=== PATIENT | female | born 1990 | race Caucasian/White ===

== ENCOUNTER 2017-04-18 07:24 | Day surgery (SDC) | payer OTHER ==
[~2017-04-18] VITALS: Ht 157.5 cm; Wt 51.3 kg
[~2017-04-18 07:24] MED LIST: AMOX500 PO; APRI1 EACH PO; Antivert25 MG PO; BCP; BIRTH CONTROL; Bactrim Ds Tab1 EACH PO; CEPH500 PO; CIPR250 PO; CIPR500 PO; CODACE15 PO; CODACE30 PO; CYAN100T2 PO; CYCL10 PO; Cyclobenzaprine5 MG PO; DIPH50; DOCU100 PO; DOXY100; ESTR.1TPBW TD; ESTR2; ESTR2 PO; FAMO20 PO; HYDACE5 PO; HYDCOR2.5B TOP; HYDGUAL120 PO; HYDR1TAB94 PO; IBUP400 PO; IBUP600 PO; IBUP800; IBUP800 PO; METPRE4DP PO; MULVITMINE PO; NAPR500 PO; NAPR550 PO; Naprosyn500 MG PO; Norco 5-325 Ta1 EACH PO; OXYACE5T PO; OXYACE7.5T PO; PENVK500 PO; PHENA200 PO; PRED5 PO; PROM25 PO; PSEU30 PO; Percocet 5-3251 EACH PO; Pyridium100 MG PO; Pyridium200 MG PO; RXCODACET PO; RXCYCL10 PO; RXPROM25 PO; RXTRAM50 PO; SULTRIDS PO; Ultram50 MG PO; Veetids 500500 MG PO; Verotin-Gr Cap1 EACH PO; Yaz 28 Tablet1 EACH PO; ZOLP5; [UNRECOGNIZED DRUG - REMARK]
== END 2017-04-18 09:54 | disposition home or self-care (01) ==
LOC: ORSCMMR 07:24
PROVIDERS: Internal Medicine Gastroenterology
PROC: 0DB48ZX Excision of Esophagogastric Junction, Via Natural or Artificial Opening Endoscopic, Diagnostic (ICD-10-PCS; principal; 2017-04-18 08:30)
PROC: 0DB68ZX Excision of Stomach, Via Natural or Artificial Opening Endoscopic, Diagnostic (ICD-10-PCS; principal; 2017-04-18 08:30)
PROC: 0DB98ZX Excision of Duodenum, Via Natural or Artificial Opening Endoscopic, Diagnostic (ICD-10-PCS; principal; 2017-04-18 08:30)
DX: R10.13 Epigastric pain (principal); B96.81 Helicobacter pylori [H. pylori] as the cause of diseases classified elsewhere; F17.210 Nicotine dependence, cigarettes, uncomplicated; K29.50 Unspecified chronic gastritis without bleeding; Z79.899 Other long term (current) drug therapy
CPT/HCPCS: 88305; 88342; J7120

== ENCOUNTER → 2017-07-11 | Outpatient (CLI) | payer OTHER | END | disposition home or self-care (01) | LOC: LAB EV 10:00 | DX: K29.01 Acute gastritis with bleeding (principal) | CPT/HCPCS: 87338 ==

== ENCOUNTER → 2018-05-24 | Outpatient (CLI) | payer OTHER ==
[2018-05-25 08:48] LABS: Candida species (DNA Probe) Negative (NEGATIVE); G. vaginalis (DNA Probe) Positive (NEGATIVE); T. vaginalis (DNA Probe) Negative (NEGATIVE)
== END | disposition home or self-care (01) ==
LOC: LAB 10:01 → LAB SHORT 10:01
PROVIDERS: Obstetrics & Gynecology
DX: N76.0 Acute vaginitis (principal)
CPT/HCPCS: 87480; 87510; 87660

== ENCOUNTER 2018-11-08 09:48 | Emergency (ER) | payer OTHER ==
[~2018-11-08] VITALS: Ht 157.5 cm; Wt 54.0 kg
== END 2018-11-08 11:43 | disposition home or self-care (01) ==
LOC: ER 09:48
DX: R11.2 Nausea with vomiting, unspecified (principal); Z87.891 Personal history of nicotine dependence
CPT/HCPCS: 81025; 99283

== ENCOUNTER 2019-05-02 09:56 | Emergency (ER) | payer OTHER ==
[~2019-05-02] VITALS: Ht 157.5 cm; Wt 52.2 kg
[2019-05-02] MEDS ORDERED: Ultram50 MG PO (12:22)
== END 2019-05-02 12:29 | disposition home or self-care (01) ==
LOC: ER 09:56
DX: M25.551 Pain in right hip (principal); F17.210 Nicotine dependence, cigarettes, uncomplicated; Z79.899 Other long term (current) drug therapy
CPT/HCPCS: 99283

== ENCOUNTER 2021-09-26 15:35 | Emergency (ER) | payer OTHER ==
[~2021-09-26] VITALS: Ht 157.5 cm; Wt 56.7 kg
[2021-09-26 17:23] LABS: Influenza A, PCR NEGATIVE (NEGATIVE); Influenza B, PCR NEGATIVE (NEGATIVE); Resp Syncytial Virus, PCR NEGATIVE (NEGATIVE); SARS-Cov-2 (COVID-19) PCR, MMC NEGATIVE (NEGATIVE)
[2021-09-26 18:06] LABS: Source, Urine Clean Catch
[2021-09-26 18:08] LABS: Appearance, Urine Cloudy (Clear); Bilirubin, Urine Neg (Neg); Blood, Urine Neg (Neg); Color, Urine Yellow (P-Yellow); Glucose Qualitative, Urine Neg (Neg); Ketones, Urine Neg (Neg); Leukocyte Esterase, Urine Neg (Neg); Nitrite, Urine Pos (Neg); Protein, Urine Neg (Neg); Specific Gravity, Urine 1.015 (1.003-1.022); Urobilinogen, Urine NORM (Normal)
[2021-09-26 18:20] LABS: Bacteria Many /hpf; Red Blood Cells, Urine 0-2 /hpf (0-2); Squamous Epithelial Cells Few /hpf (Few)
[2021-09-26 18:21] LABS: Amorphous Heavy (0-Heavy)
== END 2021-09-26 20:07 | disposition home or self-care (01) ==
LOC: ER 15:35
PROVIDERS: Physician Assistant
DX: N39.0 Urinary tract infection, site not specified (principal); F17.210 Nicotine dependence, cigarettes, uncomplicated; Z20.822 Contact with and (suspected) exposure to COVID-19; Z79.818 Long term (current) use of other agents affecting estrogen receptors and estrogen levels
CPT/HCPCS: 0241U; 81001; 87077; 87086; 87186; 96374; 99284-25; J0696

== ENCOUNTER 2021-11-01 07:28 | Emergency (ER) | payer OTHER ==
[~2021-11-01] VITALS: Ht 157.5 cm; Wt 65.8 kg
[2021-11-01 09:14] LABS: Source, Urine Clean Catch
[2021-11-01 09:25] LABS: BASOPHILS ABSOLUTE AUTO 0.03 K/mm3 (0.00-0.23); BASOPHILS PERCENT AUTO 1 % (0-2); EOSINOPHILS PERCENT AUTO 2 % (0-6); Hematocrit 40.2 % (33.0-51.0); Hemoglobin 13.8 g/dL (11.5-16.0); IMMATURE GRAN ABSOLUTE AUTO 0.02 K/mm3 (0.00-0.10); IMMATURE GRAN PERCENT AUTO 0 % (0-1); LYMPHOCYTES ABSOLUTE AUTO 2.72 K/mm3 (0.84-5.20); LYMPHOCYTES PERCENT AUTO 49 % (21-46); MONOCYTES ABSOLUTE AUTO 0.51 K/mm3 (0.16-1.47); MONOCYTES PERCENT AUTO 9 % (4-13); Mean Corpuscular HGB 31.3 pg (26.0-34.0); Mean Corpuscular HGB Conc 34.3 g/dL (31.5-36.5); Mean Corpuscular Volume 91 fL (80-100); Mean Platelet Volume 8.9 fL (9.1-12.4); NEUTROPHILS ABSOLUTE AUTO 2.16 K/mm3 (1.96-9.15); NEUTROPHILS PERCENT AUTO 39 % (41-73); Platelet Count 237 K/mm3 (150-400); RDW Coefficient Variation 11.4 % (11.7-14.2); RDW Standard Deviation 38.5 fL (35.1-46.3); Red Blood Cell Count 4.41 M/mm3 (3.80-5.20); White Blood Cell Count 5.54 K/mm3 (4.00-11.30)
[2021-11-01 09:25] LABS: Bilirubin, Urine Neg (Neg); Blood, Urine Neg (Neg); Glucose Qualitative, Urine Neg (Neg); Ketones, Urine Neg (Neg); Leukocyte Esterase, Urine Neg (Neg); Nitrite, Urine Neg (Neg); Protein, Urine Neg (Neg); Specific Gravity, Urine 1.015 (1.003-1.022); Urobilinogen, Urine NORM (Normal); pH, Urine 6.5 (5.0-8.0)
[2021-11-01 09:26] LABS: Appearance, Urine Clear (Clear); Color, Urine Yellow (P-Yellow)
[2021-11-01 09:40] LABS: Albumin, Blood 3.9 g/dL (3.4-5.0); Albumin/Globulin Ratio 1.1 (0.8-1.8); Bilirubin, Total 0.3 mg/dL (0.1-1.0); Bun/Creatinine Ratio 19.2 (12.0-20.0); Calcium, Blood 8.8 mg/dL (8.5-10.1); Creatinine, Blood 0.73 mg/dL (0.40-1.00); Globulin, Blood 3.4 g/dL (2.2-4.0); Potassium, Blood 3.7 mmol/L (3.5-5.5); Total Protein, Blood 7.3 g/dL (6.4-8.2)
== END 2021-11-01 10:49 | disposition home or self-care (01) ==
LOC: ER 07:28
PROVIDERS: Student in an Organized Health Care Education/Training Program
DX: R10.84 Generalized abdominal pain (principal); R19.7 Diarrhea, unspecified; F17.210 Nicotine dependence, cigarettes, uncomplicated; Z79.899 Other long term (current) drug therapy
CPT/HCPCS: 36415; 80053; 81003; 81025; 83690; 85025

== ENCOUNTER → 2021-11-01 | Outpatient (CLI) | payer OTHER ==
[2021-11-01 17:10] LABS: Adenovirus F 40/41 Not Detected (NOT DETECT); Astrovirus Not Detected (NOT DETECT); Campylobacter Sp Not Detected (NOT DETECT); Cryptosporidium Not Detected (NOT DETECT); Cyclospora Cayetanensis Not Detected (NOT DETECT); E. Coli O157 Not Detected (NOT DETECT); Entamoeba Histolytica Not Detected (NOT DETECT); Enteroaggregative E. coli-EAEC Not Detected (NOT DETECT); Enteropathogenic E. coli-EPEC Not Detected (NOT DETECT); Enterotoxigenic E. coli-ETEC Not Detected (NOT DETECT); Giardia Lamblia Not Detected (NOT DETECT); Norovirus GI/GII Not Detected (NOT DETECT); Plesiomonas Shigelloides Not Detected (NOT DETECT); Rotavirus A Not Detected (NOT DETECT); Salmonella Sp Not Detected (NOT DETECT); Sapovirus Not Detected (NOT DETECT); Shiga Toxin-prod E. coli-STEC Not Detected (NOT DETECT); Shigella/Enteroin E. coli-EIEC Not Detected (NOT DETECT); Vibrio Cholerae Not Detected (NOT DETECT); Vibrio Sp Not Detected (NOT DETECT); Yersinia Enterocolitica Not Detected (NOT DETECT)
== END | disposition home or self-care (01) ==
LOC: LAB SHORT 15:04
PROVIDERS: Emergency Medicine
DX: R19.7 Diarrhea, unspecified (principal)
CPT/HCPCS: 87324; 87507

== ENCOUNTER → 2022-04-12 | Outpatient (CLI) | payer OTHER ==
[2022-04-12 15:28] LABS: Source, Urine Clean Catch
[2022-04-12 17:12] LABS: Appearance, Urine Cloudy (Clear); Bilirubin, Urine Neg (Neg); Blood, Urine Neg (Neg); Color, Urine Yellow (P-Yellow); Glucose Qualitative, Urine Neg (Neg); Ketones, Urine Neg (Neg); Leukocyte Esterase, Urine Neg (Neg); Nitrite, Urine Neg (Neg); Protein, Urine Neg (Neg); Urobilinogen, Urine NORM (Normal)
[2022-04-12 19:03] LABS: Bacteria Many /hpf; Squamous Epithelial Cells Many /hpf (Few)
[2022-04-12 19:04] LABS: Mucus Mod (0-Heavy)
[2022-04-13 10:48] LABS: Candida species (DNA Probe) Negative (NEGATIVE); G. vaginalis (DNA Probe) Negative (NEGATIVE); T. vaginalis (DNA Probe) Negative (NEGATIVE)
== END | disposition home or self-care (01) ==
LOC: LAB SHORT 15:20
PROVIDERS: Obstetrics & Gynecology
DX: N94.10 Unspecified dyspareunia (principal); R82.90 Unspecified abnormal findings in urine
CPT/HCPCS: 81001; 87086; 87480; 87510; 87660

== ENCOUNTER 2022-12-05 21:35 | Emergency (ER) | payer OTHER ==
[~2022-12-05] VITALS: Ht 157.5 cm; Wt 55.3 kg
[2022-12-05 21:43] VITALS: BP 128/86
[2022-12-05 22:08] LABS: BASOPHILS ABSOLUTE AUTO 0.02 K/mm3 (0.00-0.23); BASOPHILS PERCENT AUTO 1 % (0-2); EOSINOPHILS ABSOLUTE AUTO 0.01 K/mm3 (0.00-0.68); EOSINOPHILS PERCENT AUTO 0 % (0-6); Hematocrit 39.8 % (33.0-51.0); IMMATURE GRAN ABSOLUTE AUTO 0.01 K/mm3 (0.00-0.10); IMMATURE GRAN PERCENT AUTO 0 % (0-1); LYMPHOCYTES PERCENT AUTO 24 % (21-46); MONOCYTES ABSOLUTE AUTO 0.39 K/mm3 (0.16-1.47); MONOCYTES PERCENT AUTO 9 % (4-13); Mean Corpuscular HGB 31.7 pg (26.0-34.0); Mean Corpuscular HGB Conc 35.2 g/dL (31.5-36.5); Mean Corpuscular Volume 90 fL (80-100); Mean Platelet Volume 8.6 fL (9.1-12.4); NEUTROPHILS ABSOLUTE AUTO 2.81 K/mm3 (1.96-9.15); NEUTROPHILS PERCENT AUTO 66 % (41-73); Platelet Count 222 K/mm3 (150-400); RDW Coefficient Variation 11.5 % (11.7-14.2); Red Blood Cell Count 4.42 M/mm3 (3.80-5.20); White Blood Cell Count 4.24 K/mm3 (4.00-11.30)
[2022-12-05 22:28] LABS: Albumin, Blood 3.8 g/dL (3.4-5.0); Bilirubin, Total 0.2 mg/dL (0.1-1.0); Bun/Creatinine Ratio 18.1 (12.0-20.0); Calcium, Blood 9.1 mg/dL (8.5-10.1); Creatinine, Blood 0.83 mg/dL (0.40-1.00); Globulin, Blood 3.8 g/dL (2.2-4.0); Potassium, Blood 3.9 mmol/L (3.5-5.5); Total Protein, Blood 7.6 g/dL (6.4-8.2)
== END 2022-12-05 22:13 | disposition left against medical advice (07) ==
LOC: ER 21:35
PROVIDERS: Student in an Organized Health Care Education/Training Program
DX: R51.9 Headache, unspecified (principal); Z53.29 Procedure and treatment not carried out because of patient's decision for other reasons
CPT/HCPCS: 80053; 85025

== ENCOUNTER 2022-12-06 07:21 | Emergency (ER) | payer OTHER ==
[~2022-12-06] VITALS: Ht 157.5 cm; Wt 55.3 kg
[2022-12-06 07:31] VITALS: BP 103/79
== END 2022-12-06 08:22 | disposition home or self-care (01) ==
LOC: ER 07:21
DX: B34.9 Viral infection, unspecified (principal); M79.10 Myalgia, unspecified site; F17.210 Nicotine dependence, cigarettes, uncomplicated; Z79.899 Other long term (current) drug therapy
CPT/HCPCS: 99283

== ENCOUNTER → 2023-01-31 | Outpatient (CLI) | payer OTHER ==
[2023-01-31 15:03] LABS: Source, Urine Clean Catch
[2023-01-31 19:09] LABS: Bilirubin, Urine Neg (Neg); Blood, Urine Neg (Neg); Color, Urine Yellow (P-Yellow); Glucose Qualitative, Urine Neg (Neg); Ketones, Urine Neg (Neg); Leukocyte Esterase, Urine Neg (Neg); Nitrite, Urine Neg (Neg); Protein, Urine Neg (Neg); Specific Gravity, Urine 1.015 (1.003-1.022); Urobilinogen, Urine NORM (Normal)
[2023-01-31 19:17] LABS: Appearance, Urine Clear (Clear)
== END ==
LOC: LAB 15:01 → LAB SHORT 15:01
PROVIDERS: Student in an Organized Health Care Education/Training Program
DX: R30.0 Dysuria (principal)
CPT/HCPCS: 81003

== ENCOUNTER 2023-02-19 08:07 | Emergency (ER) | payer OTHER ==
[~2023-02-19] VITALS: Ht 157.5 cm; Wt 55.3 kg
[2023-02-19 08:15] VITALS: BP 112/97
== END 2023-02-19 08:50 | disposition home or self-care (01) ==
LOC: ER 08:07
DX: R09.81 Nasal congestion (principal); F17.210 Nicotine dependence, cigarettes, uncomplicated; Z79.899 Other long term (current) drug therapy
CPT/HCPCS: 99283

== ENCOUNTER 2023-05-06 09:13 | Emergency (ER) | payer OTHER ==
[~2023-05-06] VITALS: Ht 157.5 cm; Wt 68.0 kg
[2023-05-06 09:50] VITALS: BP 135/86
== END 2023-05-06 09:57 | disposition home or self-care (01) ==
LOC: ER 09:13
DX: F41.9 Anxiety disorder, unspecified (principal); Z73.3 Stress, not elsewhere classified; K13.70 Unspecified lesions of oral mucosa; F17.210 Nicotine dependence, cigarettes, uncomplicated; Z79.3 Long term (current) use of hormonal contraceptives
CPT/HCPCS: 99282

== ENCOUNTER 2023-07-15 20:06 | Emergency (ER) | payer OTHER ==
[~2023-07-15] VITALS: Ht 157.5 cm; Wt 56.7 kg
[2023-07-15 20:43] VITALS: BP 110/72
[2023-07-15] MEDS ORDERED: Silver Sulfadiazine 1% Cream 25 APPLIC/25 GM Tube TOP ONE (21:55)
== END 2023-07-15 22:03 | disposition home or self-care (01) ==
LOC: ER 20:06
DX: T23.131A Burn of first degree of multiple right fingers (nail), not including thumb, initial encounter (principal); X18.XXXA Contact with other hot metals, initial encounter; Y93.G3 Activity, cooking and baking; F17.210 Nicotine dependence, cigarettes, uncomplicated; Z79.818 Long term (current) use of other agents affecting estrogen receptors and estrogen levels
CPT/HCPCS: 99282; A9270

== ENCOUNTER 2023-09-07 00:33 | Emergency (ER) | payer OTHER ==
[~2023-09-07] VITALS: Ht 157.5 cm; Wt 54.4 kg
[2023-09-07 00:39] VITALS: BP 116/92
[2023-09-07] MEDS ORDERED: RX Prepack 6 Tabs Oxycodone 5mg UD ONE (00:50)
== END 2023-09-07 00:58 | disposition home or self-care (01) ==
LOC: ER 00:33
DX: K06.8 Other specified disorders of gingiva and edentulous alveolar ridge (principal); F17.200 Nicotine dependence, unspecified, uncomplicated; Z79.818 Long term (current) use of other agents affecting estrogen receptors and estrogen levels
CPT/HCPCS: 99282; A9270

== ENCOUNTER 2024-01-04 07:23 | Emergency (ER) | payer OTHER ==
[~2024-01-04] VITALS: Ht 157.5 cm; Wt 57.1 kg
[2024-01-04] MEDS ORDERED: Ketorolac Tromethamine 15mg Vial IV ONE (09:00)
[2024-01-04] MEDS ORDERED: NS 1,000 ML IV SCH (09:00)
[2024-01-04 10:34] VITALS: BP 104/68
== END 2024-01-04 10:38 | disposition home or self-care (01) ==
LOC: ER 07:23
DX: U07.1 COVID-19 (principal); E86.0 Dehydration; F17.210 Nicotine dependence, cigarettes, uncomplicated; Z79.890 Hormone replacement therapy; Z59.89 Other problems related to housing and economic circumstances
CPT/HCPCS: 96374; 99283-25; J1885; J7030

== ENCOUNTER 2024-10-06 20:44 | Emergency (ER) | payer OTHER ==
[~2024-10-06] VITALS: Ht 157.5 cm; Wt 66.5 kg
[2024-10-06 21:39] LABS: BASOPHILS ABSOLUTE AUTO 0.03 K/mm3 (0.00-0.23); BASOPHILS PERCENT AUTO 0 % (0-2); EOSINOPHILS ABSOLUTE AUTO 0.07 K/mm3 (0.00-0.68); EOSINOPHILS PERCENT AUTO 1 % (0-6); Hematocrit 40.4 % (33.0-51.0); Hemoglobin 14.2 g/dL (11.5-16.0); IMMATURE GRAN ABSOLUTE AUTO 0.02 K/mm3 (0.00-0.10); IMMATURE GRAN PERCENT AUTO 0 % (0-1); LYMPHOCYTES ABSOLUTE AUTO 3.41 K/mm3 (0.84-5.20); LYMPHOCYTES PERCENT AUTO 44 % (21-46); MONOCYTES ABSOLUTE AUTO 0.47 K/mm3 (0.16-1.47); MONOCYTES PERCENT AUTO 6 % (4-13); Mean Corpuscular HGB Conc 35.1 g/dL (31.5-36.5); Mean Corpuscular Volume 88 fL (80-100); NEUTROPHILS ABSOLUTE AUTO 3.69 K/mm3 (1.96-9.15); NEUTROPHILS PERCENT AUTO 48 % (41-73); NRBC ABSOLUTE 0.00 K/mm3 (0.00-0.02); NRBC Auto 0.0 /100 WBC (0.0-0.2); Platelet Count 274 K/mm3 (150-400); RDW Coefficient Variation 11.9 % (11.7-14.2); RDW Standard Deviation 38.3 fL (35.1-46.3)
[2024-10-06 22:02] LABS: Alanine Aminotransfer (ALT/SGP 66.0 U/L (12-78); Albumin, Blood 3.6 g/dL (3.4-5.0); Albumin/Globulin Ratio 0.9 (0.8-1.8); Anion Gap 9.0 mmol/L (3-11); Aspartate Aminotrans (AST/SGOT 34.0 U/L (12-37); Bilirubin, Total 0.2 mg/dL (0.1-1.0); Blood Urea Nitrogen 8.0 mg/dL (8-24); CO2, Blood 25.0 mmol/L (21-32); Calcium, Blood 8.6 mg/dL (8.5-10.1); Chloride, Blood 108.0 mmol/L (98-108); Creatinine, Blood 0.63 mg/dL (0.40-1.00); Globulin, Blood 4.2 g/dL (2.2-4.0); Glucose, Blood 118.0 mg/dL (70-99); Potassium, Blood 3.8 mmol/L (3.5-5.5); Sodium, Blood 138.0 mmol/L (136-145); Total Protein, Blood 7.8 g/dL (6.4-8.2)
[2024-10-06 23:29] LABS: Source, Urine Clean Catch
[2024-10-06 23:30] LABS: Bilirubin, Urine Neg (Neg); Glucose Qualitative, Urine Neg (Neg); Ketones, Urine Neg (Neg); Leukocyte Esterase, Urine 1+ (Neg); Protein, Urine 1+ (Neg); Specific Gravity, Urine 1.020 (1.003-1.022); Urobilinogen, Urine NORM (Normal)
[2024-10-06 23:42] LABS: Color, Urine Yellow (P-Yellow); Red Blood Cells, Urine 0-2 /hpf (0-2)
[2024-10-06 23:54] VITALS: BP 105/75
== END 2024-10-07 00:01 | disposition home or self-care (01) ==
LOC: ER 20:44
PROVIDERS: Emergency Medicine
DX: A08.4 Viral intestinal infection, unspecified (principal); F17.200 Nicotine dependence, unspecified, uncomplicated
CPT/HCPCS: 71045; 80053; 81001; 83690; 84484; 85025; 87077; 87086; 87186; 93005; 93010; 99284-25

== ENCOUNTER 2025-01-06 08:15 | Day surgery (SDC) | payer OTHER ==
[~2025-01-06] VITALS: Ht 157.5 cm; Wt 65.1 kg
[~2025-01-06 08:15] MED LIST changes: +Lidocaine HCl 2% 10 ML SDA ONE; +NS 500 ML IV ONE
[2025-01-06] MEDS ORDERED: CeFAZolin Sodium 2,000 MG VIAL ONE (08:26)
[2025-01-06] MEDS ORDERED: NS 500 ML IV ONE (08:45)
--- NOTE | 2025-01-06 09:12 | NUR ---
01/06/25 0912 Ursula Jerome TIME OUT PERFORMED AT BEDSIDE WITH DR BRADEN AT 0909 IMMEDIATELY PRIOR TO INJECTION OF 6ML OF SOLUTION CONSISTING OF 9ML 1% LIDOCAINE WITH EPI 1:[id number] AND 1ML 8.4 % SODIUM BICARBONATE INTO R HAND. PT TOLERATED PROCEDURE WELL. CALL LIGHT IN REACH.
[2025-01-06] MEDS ORDERED: Midazolam HCl 1MG / ML 2ML Vial ONE (10:01)
[2025-01-06] MEDS ORDERED: Ketorolac Tromethamine 30mg Vial ONE (10:04)
--- NOTE | 2025-01-06 10:35 | NUR ---
01/06/25 1035 Stefanie Larios REPORT RECEIVED FROM ESTUARDO AND RN. PT ASLEEP UPON ARRIVAL, NOT AROUSABLE TO VOICE OR TOUCH. PLACED ON 4L NRB. VSS. DRESSING CDI, RIGHT FINGERS WARM, PINK, DRY. CAP REFILL <3 SECONDS ON RIGHT HAND. UNABLE TO ASSESS RIGHT RADIAL PULSE DUE TO DRESSING
--- NOTE | 2025-01-06 10:47 | NUR ---
01/06/25 1047 Stefanie Larios MDA AT BEDSIDE
[2025-01-06 11:03] VITALS: BP 100/74
[2025-01-06] MEDS ORDERED: HYDROcodone 5-APAP 325 TAB ONE (11:07)
== END 2025-01-06 11:27 | disposition home or self-care (01) ==
LOC: ORSCSDS 08:15
PROVIDERS: Orthopaedic Surgery
PROC: 0PBM0ZZ Excision of Right Carpal, Open Approach (ICD-10-PCS; principal; 2025-01-06 09:45)
PROC: 0JBJ0ZX Excision of Right Hand Subcutaneous Tissue and Fascia, Open Approach, Diagnostic (ICD-10-PCS; principal; 2025-01-06 09:45)
PROC: 0KB Muscles, Excision (ICD-10-PCS; principal; 2025-01-06 09:45)
DX: M67.441 Ganglion, right hand (principal); R22.31 Localized swelling, mass and lump, right upper limb
CPT/HCPCS: 88304; A9270; J0690; J1885; J2003; J2250; J2704; J7040

== ENCOUNTER 2025-03-18 02:49 | Emergency (ER) | payer OTHER ==
[~2025-03-18] VITALS: Ht 157.5 cm; Wt 63.5 kg
[~2025-03-18 02:49] MED LIST changes: -Lidocaine HCl 2% 10 ML SDA ONE; -NS 500 ML IV ONE
[2025-03-18 03:06] VITALS: BP 120/85
[2025-03-18] MEDS ORDERED: Tetracaine HCl/Pf 0.5% Opth Soln 4 ml BOTHEYES ONE (03:35)
[2025-03-18] MEDS ORDERED: NS 2,000 ML IV SCH (03:35)
[2025-03-18] MEDS ORDERED: NS 1,000 ML BAG XX ONE (03:50)
[2025-03-19 15:13] LABS: HEPATITIS C AB CIA INTERP Negative (Negative); HEPATITIS C ANTIBODY CIA INDEX 0.04 IV
[2025-03-19 15:46] LABS: HEPATITIS B SURFACE ANTIBODY >1000.00 IU/L
[2025-03-19 16:28] LABS: HIV 1,2 COMBO ANTIGEN/ANTIBODY Negative (Negative)
== END 2025-03-18 06:07 | disposition home or self-care (01) ==
LOC: ER 02:49
DX: Z77.21 Contact with and (suspected) exposure to potentially hazardous body fluids (principal); F17.200 Nicotine dependence, unspecified, uncomplicated; R74.01 Elevation of levels of liver transaminase levels
CPT/HCPCS: 84460; 86803; 87389; 99283; J7030